=== PATIENT | male | born 1985 | race Caucasian/White ===

== ENCOUNTER → 2020-06-18 14:25 | Outpatient (BNVA) | payer OTHER, SELFPAY | PROVIDERS: Family Provider Electrodiagnostic Medicine; PCP Electrodiagnostic Medicine; Referring Provider Electrodiagnostic Medicine; Visit Provider Dermatology | DX: L30.8 Other specified dermatitis (principal); B35.4 Tinea corporis; M35.2 Behcet's disease | CPT/HCPCS: 87220; 99203 ==